=== PATIENT | female | born 1985 | race Caucasian/White ===

== ENCOUNTER → 2020-07-13 | Outpatient (CLI) | payer BC, OTHER ==
[2020-07-13 08:09] LABS: RED BLOOD COUNT 4.5 M/UL (4.00-5.10); WHITE BLOOD COUNT 8.6 K/UL (4.5-11.0)
[2020-07-13 08:36] LABS: BUN/CREATININE RATIO 19 (0-10)
== END ==
LOC: LAB 07:20
PROVIDERS: Nurse Practitioner Family
DX: Z00.00 Encounter for general adult medical examination without abnormal findings (principal); I10 Essential (primary) hypertension; R10.9 Unspecified abdominal pain; J30.9 Allergic rhinitis, unspecified; K21.9 Gastro-esophageal reflux disease without esophagitis; R51.9 Headache, unspecified; K59.00 Constipation, unspecified; M25.50 Pain in unspecified joint; R53.83 Other fatigue; E78.5 Hyperlipidemia, unspecified; E55.9 Vitamin D deficiency, unspecified; E53.8 Deficiency of other specified B group vitamins
CPT/HCPCS: 36415; 80053; 80061; 82607; 84439; 84443; 85025

== ENCOUNTER → 2020-08-14 | Outpatient (CLI) | payer BC, OTHER ==
[2020-08-14 15:30] LABS: BUN/CREATININE RATIO 19 (0-10)
[2020-08-17 15:11] LABS: THYROGLOBULIN ANTIBODY <1.0 IU/mL (0.0-0.9); THYROID PEROXIDASE (TPO) AB 16 IU/mL (0-34)
== END ==
LOC: LAB 14:22
PROVIDERS: Nurse Practitioner Family
DX: R89.9 Unspecified abnormal finding in specimens from other organs, systems and tissues (principal); R53.83 Other fatigue
CPT/HCPCS: 36415; 80048; 84439; 84443; 86376; 86800

== ENCOUNTER → 2021-04-09 | Outpatient (CLI) | payer BC ==
[2021-04-09 12:43] LABS: HEMOGLOBIN 12.5 gm/dl (12.3-15.3); RED BLOOD COUNT 4.26 M/UL (4.00-5.10); WHITE BLOOD COUNT 7.3 K/UL (4.5-11.0)
[2021-04-09 13:16] LABS: BUN/CREATININE RATIO 16 (0-10)
[2021-04-10 08:13] LABS: ESTRADIOL 30.2 pg/mL (.); FSH 64.6 mIU/mL (.); LUTEINIZING HORMONE(LH) 38.4 mIU/mL (.); SARS COV-2 IGG AB Positive (Negative); VITAMIN D, 25-HYDROXY 57.1 ng/mL (30.0-100.0)
[2021-04-10 09:16] LABS: PROLACTIN 10.8 ng/mL (4.8-23.3)
== END ==
LOC: LAB 11:40
PROVIDERS: Nurse Practitioner Family
DX: Z01.84 Encounter for antibody response examination (principal); R23.2 Flushing; I10 Essential (primary) hypertension; R10.9 Unspecified abdominal pain; K21.9 Gastro-esophageal reflux disease without esophagitis; E78.5 Hyperlipidemia, unspecified; R53.83 Other fatigue; E53.8 Deficiency of other specified B group vitamins; E55.9 Vitamin D deficiency, unspecified; R05.9 Cough, unspecified; Z20.822 Contact with and (suspected) exposure to COVID-19
CPT/HCPCS: 36415; 80053; 80061; 82607; 82670; 83001; 83002; 84146; 84402; 84403; 84439; 84443; 85025; 86769

== ENCOUNTER → 2021-11-18 | Outpatient (CLI) | payer BC ==
[2021-11-18 08:35] LABS: HEMOGLOBIN 13.3 gm/dl (12.3-15.3); RED BLOOD COUNT 4.45 M/UL (4.00-5.10); WHITE BLOOD COUNT 8.7 K/UL (4.5-11.0)
[2021-11-18 09:18] LABS: BUN/CREATININE RATIO 19 (0-10)
== END ==
LOC: LAB 07:43
PROVIDERS: Nurse Practitioner Family
DX: I10 Essential (primary) hypertension (principal); R10.9 Unspecified abdominal pain; J30.9 Allergic rhinitis, unspecified; R26.2 Difficulty in walking, not elsewhere classified; E53.8 Deficiency of other specified B group vitamins; E55.9 Vitamin D deficiency, unspecified
CPT/HCPCS: 36415; 80053; 80061; 82607; 84439; 84443; 85025